=== PATIENT | female | born 1995 | race African-American/Black ===

== ENCOUNTER 2023-08-11 16:09 | Emergency (ER) | payer OTHER ==
[2023-08-11 16:16] VITALS: BP 112/67; RESP 16; TEMP 97.7; BMI 34.0
[2023-08-11 16:33] VITALS: PULSE 101
== END 2023-08-11 19:46 | disposition home or self-care (01) ==
LOC: JER 16:09 → JERFT 16:09
DX: S83.004A Unspecified dislocation of right patella, initial encounter (principal); Y04.0XXA Assault by unarmed brawl or fight, initial encounter
CPT/HCPCS: 73562-TC-RT-FY; 99283-25